=== PATIENT | female | born 1995 | race Caucasian/White ===

== ENCOUNTER → 2018-01-17 | Outpatient (CLI) | payer OTHER ==
[~2018-01-17] MED LIST: ALBU8.5H IH; AZIT-1 PO; BENZ200C15 PO; FLU150 PO
== END ==
LOC: LAB 13:55
PROVIDERS: ATTEND Nurse Practitioner Primary Care
DX: Z11.3 Encounter for screening for infections with a predominantly sexual mode of transmission (principal); Z72.51 High risk heterosexual behavior
CPT/HCPCS: 36415; 84703; 86592; 86703; 87491; 87591; 87801